=== PATIENT | male | born 1990 | race Caucasian/White ===

== ENCOUNTER 2016-07-21 00:16 | Emergency (ER) | payer OTHER ==
[~2016-07-21 00:16] MED LIST: LOPERAMIDE2 M2 PO; NO HOME MEDICATION XX; ZOFRAN ODT4 MG PO
[2016-07-21] MEDS ORDERED: NORCO 5/3251 TAB PO (01:02)
[2016-07-21] MEDS ORDERED: IBUPROFEN800 M1 PO (01:02)
== END 2016-07-21 01:28 ==
LOC: EDMED 00:16
DX: M54.31 Sciatica, right side (principal)
CPT/HCPCS: J1170; J1885